=== PATIENT | female | born 1950 | race Caucasian/White ===

== ENCOUNTER → 2016-07-28 | Outpatient (REF) ==
[~2016-07-28] MED LIST: ALEVE 220MG220 MG PO; AMBIEN 5MG TABLE5 MG PO; APPEAREX2.5 MG PO; ASPI81EC86; ASPIRIN E.C. 8181 MG PO; B-121000 MCG PO; BENADRYL25 M2 PO; BIOTIN10000 MC1 PO; CALCIUM 600MG+D1 TAB PO; CELEXA; CELEXA40 MG PO; FLINTSTONES W/I1 CTB PO; GLUCOSAMINE & C1 CA1 PO; HEALTH CARE AME1 SGL PO; LORTAB 5/500 501 TAB PO; SAXENDA6 MG/ML SQ; SENNA SOFT15 MG PO; SYNTHROID PO; SYNTHROID0.137 MG PO; TYLENOL 325MG325 MG PO; VITAMIN B12500 MC1 MM; VITAMIN D 1001000 IU PO; VITAMIN D32000 I1 PO; ZOCOR 20MG20 MG PO; ZOCOR 40MG40 MG PO; ZOCOR80 MG PO; [UNRECOGNIZED DRUG - OTHER] PO
== END ==
LOC: ZLAB.WCH 10:46
DX: Z01.89 Encounter for other specified special examinations (principal)

== ENCOUNTER → 2016-11-21 | Outpatient (CLI) | payer OTHER | LOC: MC.RAD 10:02 | DX: Z12.31 Encounter for screening mammogram for malignant neoplasm of breast (principal) ==

== ENCOUNTER → 2016-12-28 | Outpatient (REF) ==
[2016-12-28 15:44] LABS: C-REACTIVE PROTEIN < 0.5 mg/dL (0.0-0.9)
[2016-12-28 16:11] LABS: THYROID STIMULATING HORMONE 0.855 uIU/mL (0.465-4.680)
== END ==
LOC: ZLAB.WCH 10:28
PROVIDERS: Internal Medicine
DX: Z01.89 Encounter for other specified special examinations (principal)

== ENCOUNTER → 2018-01-02 | Outpatient (REF) | LOC: ZLAB.WCH 16:00 | DX: Z01.89 Encounter for other specified special examinations (principal) ==

== ENCOUNTER → 2018-01-16 | Outpatient (CLI) | payer OTHER | LOC: MC.RAD 12-12 09:40 | DX: Z12.31 Encounter for screening mammogram for malignant neoplasm of breast (principal) ==

== ENCOUNTER → 2019-02-22 | Outpatient (CLI) | payer OTHER ==
[~2019-02-22] MED LIST changes: +AMBIEN 10MG10 MG PO; -AMBIEN 5MG TABLE5 MG PO; +LIPITOR 40MG TA40 MG PO; +NATURAL IRON65 MG PO; +STOOL SOFTENER100 M2 PO; +SYNTHROID0.1 MG/TAB PO; -SYNTHROID0.137 MG PO; -TYLENOL 325MG325 MG PO; +TYLENOL 500MG500 MG PO; +VITAMINC1000TA PO; -ZOCOR 40MG40 MG PO
== END ==
LOC: MC.RAD 08:45
DX: Z12.31 Encounter for screening mammogram for malignant neoplasm of breast (principal); Z00.00 Encounter for general adult medical examination without abnormal findings; Z12.11 Encounter for screening for malignant neoplasm of colon; M85.80 Other specified disorders of bone density and structure, unspecified site

== ENCOUNTER → 2020-02-27 | Outpatient (CLI) | payer OTHER | LOC: MC.RAD 06:57 | DX: Z12.31 Encounter for screening mammogram for malignant neoplasm of breast (principal) ==

== ENCOUNTER → 2022-11-16 | Outpatient (RCR) | payer MEDICARE ==
[~2022-11-16] MED LIST changes: +AMBIEN 5MG TABLE5 MG PO; +FOSAMAX 70MG TA70 MG PO; +MAGNESIUM200 MG PO; +MULTI VITAMINS1 TAB PO; +NATURAL POTASS595 MG PO; +SENNA-LAX8.6 MG PO; +TYLENOL 325MG325 MG PO; -TYLENOL 500MG500 MG PO
== END | disposition home or self-care (01) ==
LOC: COL.CR
DX: Z48.812 Encounter for surgical aftercare following surgery on the circulatory system (principal); Z95.2 Presence of prosthetic heart valve

== ENCOUNTER 2023-07-07 10:31 | Day surgery (SDC) | payer MEDICARE ==
[~2023-07-07] VITALS: Ht 162.6 cm; Wt 90.2 kg
[2023-07-07 11:09] LABS: BASO # 0.1 K/mm3 (0.0-0.2); BASO % 0.8 % (0.0-2.0); EOS # 0.1 K/mm3 (0.0-0.7); EOS % 1.4 % (0.0-4.0); GRAN # 3.9 K/mm3 (1.4-6.5); HEMOGLOBIN 11.1 g/dl (12.5-16.0); LYMPH # 1.9 K/mm3 (1.2-3.4); LYMPH % 28.7 % (20.0-51.0); MEAN CELL VOLUME 89 fl (80.0-100.0); MEAN CORPUSCULAR HEMOGLOBIN 28 pg (27-31); MEAN CORPUSCULAR HGB CONC 32 g/dl (33.0-37.0); MEAN PLATELET VOLUME 8.7 fl (7.4-10.4); MONO # 0.6 K/mm3 (0.1-0.6); MONO % 8.8 % (1.7-9.3); PLATELET COUNT 187 K/mm3 (130-400); RED BLOOD COUNT 3.91 M/mm3 (4.10-5.30); REDCELL DISTRIBUTION WIDTH-CV 13.8 % (11.5-14.5)
[2023-07-07 11:10] LABS: HEMATOCRIT 34.8 % (37.0-47.0)
[2023-07-07 11:16] LABS: INR 1.1 (0.8-3.0); PROTHROMBIN TIME 11.7 SECONDS (9.7-12.8)
[2023-07-07] MEDS ORDERED: COZAAR 25MG25 MG/TAB PO (11:21)
[2023-07-07] MEDS ORDERED: PLAVIX 75MG TAB75 MG PO (11:21)
[2023-07-07 11:22] LABS: CALCIUM 8.7 mg/dL (8.4-10.2); CREATININE, serum 0.73 mg/dL (0.57-1.11); POTASSIUM 4.3 mmol/L (3.5-4.5)
[2023-07-07] MEDS ORDERED: THE MEDICINE S200 M2 PO (11:22)
[2023-07-07] MEDS ORDERED: CRESTOR20 MG PO (11:23)
[2023-07-07] MEDS ORDERED: B-121000 MCG PO (11:24)
[2023-07-07] MEDS ORDERED: VITAMIND3 5000 PO (11:25)
[2023-07-07] MEDS ORDERED: TOPROL XL 25MG25 MG PO (11:25)
[2023-07-07] MEDS ORDERED: IRON TABLETS325 MG PO (11:26)
[2023-07-07] MEDS ORDERED: CALCIUM ASCORB500 MG PO (11:26)
[2023-07-07] MEDS ORDERED: OSCAL 500 TAB500 MG PO (11:27)
[2023-07-07] MEDS ORDERED: SENNA-LAX8.6 MG PO (11:28)
[2023-07-07] MEDS ORDERED: COLACE 100100 MG/CAP PO (11:28)
[2023-07-07] MEDS ORDERED: XANAX .25M0.25 MG/TA PO (11:28)
[2023-07-07] MEDS ORDERED: BENADRYL25 M2 PO (11:29)
[2023-07-07 11:41] VITALS: BP 158/79; PULSE 71; TEMP 97.8
[2023-07-07 13:15] VITALS: BP 130/76; PULSE 73
--- NOTE | 2023-07-07 13:24 | NUR ---
Bedside report completed with Justin Bowles. Call light within reach, dial flow to 30ml/hr, vitals signs set to q15.
[2023-07-07 13:30] VITALS: BP 123/59; PULSE 72
[2023-07-07 13:45] VITALS: BP 117/63; PULSE 70
[2023-07-07 14:00] VITALS: BP 108/62; PULSE 69
[2023-07-07 14:30] VITALS: BP 122/62; PULSE 75
--- NOTE | 2023-07-07 14:50 | NUR ---
DC instructions reviewed with pt, she expresses understanding. Pt tolerated water, tea, crackers and peanut butter during recovery period. She is stable on feet in room. IV DC'd, site wrapped with coban. Pt assisted out to ex-'s car by wheelchair with belongings. Pt is free of complaints at time of discharge.
== END 2023-07-07 14:50 | disposition home or self-care (01) ==
LOC: COL.CAR 10:31
PROVIDERS: Internal Medicine Cardiovascular Disease
DX: G45.9 Transient cerebral ischemic attack, unspecified (principal); G47.33 Obstructive sleep apnea (adult) (pediatric); Z87.891 Personal history of nicotine dependence
CPT/HCPCS: J2371; J2704; J7120